=== PATIENT | female | born 1940 | race Caucasian/White ===

== ENCOUNTER → 2020-01-16 | Outpatient (CLI) | payer MEDICARE ==
[~2020-01-16] MED LIST: ALBU8.5H8 INH; ASPI81TA14 PO; BUDE0.253 INH; DULO30CA2 PO; GABA100C PO; HYDR25TA6 PO; LEVO25TA4 PO; LOSA50TA14 PO; MELO15TA24 PO; METF500T17 PO; METO-290 PO; METO50TA82 PO; OMEP-110 PO; PRAV10TA2 PO; SMZ-TMP PO; [UNRECOGNIZED DRUG - OTHER] PO; [UNRECOGNIZED DRUG - OTHER] PO; areds PO; fish oil PO; gabapentin PO; iron PO; magnesium PO; vitamin d-3 PO
[2020-01-16 10:16] LABS: ALANINE AMINOTRANSFERASE 22 U/L (12-78); ANION GAP 5 mmol/L (5-15); CALCIUM 9.3 mg/dL (8.5-10.1); CHLORIDE 101 mmol/L (98-107); CREATININE 0.81 mg/dL (0.55-1.02)
[2020-01-16 10:19] LABS: ALKALINE PHOSPHATASE 71 U/L (45-117); BILIRUBIN,TOTAL 0.2 mg/dL (0.2-1.0); TOTAL PROTEIN 7.3 g/dL (6.4-8.2)
== END | disposition home or self-care (01) ==
LOC: STAR 08:26
PROVIDERS: ATTEND Orthopaedic Surgery
DX: Z01.812 Encounter for preprocedural laboratory examination (principal); Z20.828 Contact with and (suspected) exposure to other viral communicable diseases; M25.512 Pain in left shoulder; M75.22 Bicipital tendinitis, left shoulder; M75.122 Complete rotator cuff tear or rupture of left shoulder, not specified as traumatic
CPT/HCPCS: 36415; 80053; 87635; 93005

== ENCOUNTER 2020-01-21 07:06 | Day surgery (SDC) | payer MEDICARE ==
[~2020-01-21] VITALS: Ht 162.6 cm; Wt 69.0 kg
[~2020-01-21 07:06] MED LIST changes: +BUPIVACAINE/PF 0.25% ONE; -GABA100C PO; -HYDR25TA6 PO; -METO50TA82 PO
[2020-01-21] MEDS ORDERED: FENTANYL PF 250 MCG/5ML ONE (07:44)
[2020-01-21] MEDS ORDERED: MIDAZOLAM 1 MG/ML, 2ML ONE (07:44)
[2020-01-21] MEDS ORDERED: LACTATED RINGERS 1,000 ML IV SCH (08:00)
[2020-01-21] MEDS ORDERED: CHLORHEXIDINE 15 ML UDC MM ONE (08:00)
[2020-01-21] MEDS ORDERED: HYDR25TA6 PO (08:21)
[2020-01-21] MEDS ORDERED: GABA100C PO (08:21)
[2020-01-21] MEDS ORDERED: METO50TA82 PO (08:21)
[2020-01-21] MEDS ORDERED: LIDOCAINE 2%, 20ML ONE (08:40)
[2020-01-21] MEDS ORDERED: GLYCOPYRROLATE 0.2MG/1ML, 5ML ONE (08:40)
[2020-01-21] MEDS ORDERED: NEOSTIGMINE 1 MG/ML, 10ML ONE (08:40)
[2020-01-21] MEDS ORDERED: PROPOFOL 10 MG/ML, 20ML ONE (08:40)
[2020-01-21] MEDS ORDERED: DEXAMETHASONE 4 MG/ML, 1ML ONE (08:40)
[2020-01-21] MEDS ORDERED: SUCCINYLCHOLINE 20 MG/ML, 10ML ONE (08:40)
[2020-01-21] MEDS ORDERED: ONDANSETRON 2MG/ML, 2ML ONE ×2 (08:40→10:39)
[2020-01-21] MEDS ORDERED: CEFAZOLIN 1,000 MG ONE (08:40)
[2020-01-21] MEDS ORDERED: OXYcodone 5 MG/5 ML ORAL.SOL UDC PO PRN ×2 (09:00→10:30)
[2020-01-21] MEDS ORDERED: HYDROmorphone 1 MG/ML, 1ML INJ IVPush PRN ×2 (09:00→10:30)
[2020-01-21] MEDS ORDERED: METHOCARBAMOL 1,000 MG in DEXTROSE 5% 100 ML IV PRN ×2 (09:00→10:30)
[2020-01-21] MEDS ORDERED: hydrALAzine 20 MG/ML, 1ML IV PRN (09:00)
[2020-01-21] MEDS ORDERED: FENTANYL PF 100 MCG/2ML IV PRN ×2 (09:00→10:30)
[2020-01-21] MEDS ORDERED: LABETALOL 5MG/ML, 20ML IV PRN ×2 (09:00→10:30)
[2020-01-21] MEDS ORDERED: ACETAMINOPHEN 325 MG TABLET PO PRN ×2 (09:00→10:30)
[2020-01-21] MEDS ORDERED: ONDANSETRON 2MG/ML, 2ML IVPush PRN ×2 (09:00→10:30)
[2020-01-21] MEDS ORDERED: HALOPERIDOL 5 MG/ML IV PRN ×2 (09:00→10:30)
[2020-01-21] MEDS ORDERED: KETOROLAC 30 MG/1 ML IV PRN (10:30)
[2020-01-21] MEDS ORDERED: EPHEDRINE 50 MG/ML, 1ML IVPush PRN (10:30)
[2020-01-21] MEDS ORDERED: LABETALOL 5MG/ML, 20ML ONE (10:32)
== END 2020-01-21 12:00 | disposition home or self-care (01) ==
LOC: OUT 07:06
PROVIDERS: ATTEND Orthopaedic Surgery
DX: S46.012A Strain of muscle(s) and tendon(s) of the rotator cuff of left shoulder, initial encounter (principal); S46.112A Strain of muscle, fascia and tendon of long head of biceps, left arm, initial encounter; S43.432A Superior glenoid labrum lesion of left shoulder, initial encounter; M75.42 Impingement syndrome of left shoulder; M75.02 Adhesive capsulitis of left shoulder; M19.012 Primary osteoarthritis, left shoulder; M94.212 Chondromalacia, left shoulder; G89.18 Other acute postprocedural pain; I10 Essential (primary) hypertension; K21.9 Gastro-esophageal reflux disease without esophagitis; E78.5 Hyperlipidemia, unspecified; J44.9 Chronic obstructive pulmonary disease, unspecified; E11.9 Type 2 diabetes mellitus without complications; M19.90 Unspecified osteoarthritis, unspecified site; M81.0 Age-related osteoporosis without current pathological fracture; Z79.899 Other long term (current) drug therapy; Z86.718 Personal history of other venous thrombosis and embolism; Z87.891 Personal history of nicotine dependence; Z88.0 Allergy status to penicillin; Z99.81 Dependence on supplemental oxygen; X58.XXXA Exposure to other specified factors, initial encounter; Y93.89 Activity, other specified; Y92.89 Other specified places as the place of occurrence of the external cause; Y99.8 Other external cause status
CPT/HCPCS: 29823; 29824; 29826; 29827; 64415; 82962; C1713; J0330; J0690; J1100; J2250; J2405; J2704; J2710; J3010; J7120